=== PATIENT | male | born 1980 | race Caucasian/White ===

== ENCOUNTER 2024-09-16 20:14 | Emergency (ER) | payer BC ==
[2024-09-16 20:46] VITALS: TEMP 98.4; BMI 32.1
[2024-09-16] MEDS ORDERED: LOSARTAN POTASSIUM 50 MG TABLET ONE (20:54)
[2024-09-16] MEDS: LOSARTAN POTASSIUM 50 MG TABLET PO ONE (20:59)
[2024-09-16 21:32] LABS: ABSOLUTE IMMATURE GRANULOCYTES 0.03 x10^3/uL (0.0-0.031); BASOPHILS # 0.03 x10^3/uL (0.01-0.08); EOSINOPHILS # 0.08 x10^3/uL (0.04-0.54); HEMATOCRIT 43.4 % (40.1-51.0); HEMOGLOBIN 14.8 g/dL (13.7-17.5); MCHC 34.1 g/dl (32.3-36.5); MEAN CELL VOLUME 88.8 fl (79.0-92.2); MEAN PLT VOLUME 10.8 fl (9.4-12.4); MONOCYTE # 0.66 x10^3/uL (0.30-0.82); MONOCYTE % 8.5 % (5.3-12.2); PLATELET COUNT 232 x10^3/uL (163-337); RDW 12.2 % (12.1-15.9)
[2024-09-16 21:43] LABS: ALBUMIN 4.5 g/dl (3.4-5.0); BILIRUBIN,TOTAL 0.5 mg/dl (0.2-1); CALCIUM 8.9 mg/dl (8.5-10.1); CREATININE 1.2 mg/dl (0.6-1.3); POTASSIUM 3.8 mmol/L (3.5-5.1)
[2024-09-17 00:02] VITALS: BP 172/114; PULSE 66; RESP 18
== END 2024-09-17 02:16 | disposition home or self-care (01) ==
LOC: FER 20:14
DX: I10 Essential (primary) hypertension (principal)
CPT/HCPCS: 36415; 80053; 82550; 82553; 84484; 85025; 93005; 99284-25